=== PATIENT | female | born 1965 | race Caucasian/White ===

== ENCOUNTER → 2016-10-26 | Outpatient (CLI) | payer OTHER | LOC: FIMAGING 10:39 | DX: Z12.31 Encounter for screening mammogram for malignant neoplasm of breast (principal); Z80.3 Family history of malignant neoplasm of breast | CPT/HCPCS: G0202 ==

== ENCOUNTER 2016-12-27 16:01 | Emergency (ER) | payer OTHER ==
[2016-12-27 16:06] VITALS: RESP 16; TEMP 97.9
[2016-12-27] MEDS ORDERED: ONDANSETRON 4 MG/2 ML VIAL IVP ONE (16:50)
[2016-12-27] MEDS ORDERED: fentaNYL 100 MCG/2 ML INJ IVP ONE (16:50)
[2016-12-27] MEDS ORDERED: NS 1,000 ML IV ONE (16:50)
--- NOTE | 2016-12-27 16:54 | EDPHY ---
H & P Time Seen by Provider: 12/27/16 16:23 HPI/ROS: Lower abdominal pain. 51-year-old female by private vehicle with friend. 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 This was down in [place] at [facility]. She has also had a bowel obstruction post surgery which did not require surgical management. She presents complaining of sharp lower abdominal pain which she describes as across her lower abdomen, constant for the last 3 hours. She reports the pain is better now. She has had nausea but no vomiting. Her last bowel movement was yesterday. She describes this is normal. No bloody or melenic stool. She has not had any diarrhea. She denies any urinary complaints. Last meal was this morning. ROS: Constitutional: No fever, no chills. No weakness. Eyes: No discharge. No changes in vision. ENT: No sore throat. No nasal congestion or rhinorrhea. Respiratory: No cough. No shortness of breath. Cardiac: No chest pain, no palpitations. Gastrointestinal: As above, no vomiting, no diarrhea. Genitourinary: No hematuria. No dysuria or increased frequency with urination. Musculoskeletal: No back pain. No neck pain. No myalgias or arthralgias. Skin: No rashes. Neurological: No headache. No focal weakness or altered sensation. Past medical history: As above. Social history: Nonsmoker. No alcohol. Here with a friend. Physical Exam: General Appearance: Alert, no distress. She appears comfortable at this time. This patient is responding to questions appropriately and in full sentences. This patient appears well-hydrated and well-nourished. Eyes: Pupils equal and round no pallor or injection. No lid edema, erythema or injection. Respiratory: There are no retractions, lungs are clear to auscultation with good air movement bilaterally. Cardiovascular: Regular rate and rhythm. No murmur. Gastrointestinal: Abdomen is soft with right lower quadrant tenderness on palpation, no masses, bowel sounds normal. No focal tenderness at McBurney's point. No Sifuentes sign. Neurological: Motor sensory function is grossly intact. Cranial nerves are normal. Gait is normal. Skin: Warm and dry, no rashes. Musculoskeletal: Neck is supple and nontender. Extremities are symmetrical. All joints range without pain or impingement. Psychiatric: No agitation. No depression. Database: EKG: Imaging: CT abdomen and pelvis with IV contrast: No evidence of appendicitis or bowel obstruction. No other significant acute pathology. Constipation noted. Results were discussed with staff radiologist Dr. Jb Caba. Procedures: Emergency department course: IV placed. She was placed on a classroom monitor. She was started on IV normal saline with 1 L to be given over 1 hour. She is declining antiemetics and pain medication at this time. I did discuss CT imaging to evaluate for possible volvulus versus appendicitis. She consents. 6:30 p.m., patient re-evaluated. Resting comfortably at this time. Repeat abdominal exam she is soft, nontender nondistended. Her is in the room with her. I discussed the results of her CT scan as well as blood work and urinalysis with her and her . She feels comfortable going home and I feel she is safe for discharge. Customary return to emergency department precautions reviewed. Follow-up was discussed. All of her questions were answered. She was discharged in good condition. Differential Diagnosis: The differential diagnosis on this patient includes but is not limited to appendicitis, volvulus, bowel obstruction, constipation. This represents a partial list of diagnoses considered. These considerations are based on history , physical exam, past history, reassessment and diagnostic testing. Smoking Status: Never smoked Constitutional: Initial Vital Signs Temperature (C) 36.6 C 12/27/16 16:02 Heart Rate 62 12/27/16 16:02 Respiratory Rate 16 12/27/16 16:02 Blood Pressure 104/69 12/27/16 16:02 O2 Sat (%) 98 12/27/16 16:02 O2 Delivery Mode Room Air Allergies/Adverse Reactions: Penicillins Allergy (Mild, Verified 12/27/16 16:07) Rash Home Medications: Medication Instructions Recorded Levothyroxine [Synthroid 150 mcg 150 mcg PO DAILY@1000 01/05/11 (*)] PARoxetine HCL [Paxil] 5 mg PO DAILY 01/05/11 Medical Decision Making - Diagnostics Imaging Results: Imaging Impressions Abdomen CT 12/27/16 16:50 Impression: 1. Splenectomy and distal pancreatectomy, similar to 2009. 2. Constipation. 3. Intrauterine device. 4. Ricci cava. - Data Points Laboratory Results: Laboratory Results 12/27/16 16:30 12/27/16 16:30 12/27/16 12/27/16 12/27/16 16:55 16:30 16:30 WBC RBC Hgb Hct MCV MCH MCHC RDW Plt Count MPV Neut % (Auto) Lymph % (Auto) Sumner % (Auto) Eos % (Auto) Baso % (Auto) Nucleat RBC Rel Count Absolute Neuts (auto) Absolute Lymphs (auto) Absolute Monos (auto) Absolute Eos (auto) Absolute Basos (auto) Absolute Nucleated RBC Immature Gran % Immature Gran # Sodium 135 mEq/L mEq/L (134-144) Potassium 3.9 mEq/L mEq/L (3.5-5.2) Chloride 103 mEq/L mEq/L (97-110) Carbon Dioxide 22 mEq/l mEq/l (22-31) Anion Gap 10 mEq/L mEq/L (8-16) BUN 16 mg/dL mg/dL (7-23) Creatinine 0.9 mg/dL mg/dL (0.6-1.0) Estimated GFR > 60 Glucose 111 mg/dL H mg/dL (70-100) Calcium 9.6 mg/dL mg/dL (8.5-10.4) Beta HCG, Qual NEGATIVE Urine Color PALE YELLOW Urine Appearance CLEAR Urine pH 6.0 (5.0-7.5) Ur Specific [place] 1.012 (1.002-1.030) Urine Protein NEGATIVE (NEGATIVE) Urine Ketones NEGATIVE (NEGATIVE) Urine Blood NEGATIVE (NEGATIVE) Urine Nitrate NEGATIVE (NEGATIVE) Urine Bilirubin NEGATIVE (NEGATIVE) Urine Urobilinogen NEGATIVE EU EU (0.2-1.0) Ur Leukocyte Esterase NEGATIVE (NEGATIVE) Urine RBC NONE SEEN /hpf /hpf (0-3) Urine WBC 1-3 /hpf /hpf (0-3) Ur Epithelial Cells TRACE /lpf /lpf (NONE-1+) Urine Bacteria TRACE /hpf H /hpf (NONE SEEN) Urine Glucose NEGATIVE (NEGATIVE) 12/27/16 16:30 WBC 9.35 10^3/uL 10^3/uL (3.80-9.50) RBC 4.21 10^6/uL 10^6/uL (4.18-5.33) Hgb 12.3 g/dL L g/dL (12.6-16.3) Hct 37.5 % L % (38.0-47.0) MCV 89.1 fL fL (81.5-99.8) MCH 29.2 pg pg (27.9-34.1) MCHC 32.8 g/dL g/dL (32.4-36.7) RDW 13.9 % % (11.5-15.2) Plt Count 286 10^3/uL 10^3/uL (150-400) MPV 11.1 fL fL (8.7-11.7) Neut % (Auto) 45.7 % % (39.3-74.2) Lymph % (Auto) 44.7 % % (15.0-45.0) Sumner % (Auto) 5.5 % % (4.5-13.0) Eos % (Auto) 1.6 % % (0.6-7.6) Baso % (Auto) 1.4 % % (0.3-1.7) Nucleat RBC Rel Count 0.4 % H % (0.0-0.2) Absolute Neuts (auto) 4.28 10^3/uL 10^3/uL (1.70-6.50) Absolute Lymphs (auto) 4.18 10^3/uL H 10^3/uL (1.00-3.00) Absolute Monos (auto) 0.51 10^3/uL 10^3/uL (0.30-0.80) Absolute Eos (auto) 0.15 10^3/uL 10^3/uL (0.03-0.40) Absolute Basos (auto) 0.13 10^3/uL H 10^3/uL (0.02-0.10) Absolute Nucleated RBC 0.04 10^3/uL H 10^3/uL (0-0.01) Immature Gran % 1.1 % % (0.0-1.1) Immature Gran # 0.10 10^3/uL 10^3/uL (0.00-0.10) Sodium Potassium Chloride Carbon Dioxide Anion Gap BUN Creatinine Estimated GFR Glucose Calcium Beta HCG, Qual Urine Color Urine Appearance Urine pH Ur Specific [place] Urine Protein Urine Ketones Urine Blood Urine Nitrate Urine Bilirubin Urine Urobilinogen Ur Leukocyte Esterase Urine RBC Urine WBC Ur Epithelial Cells Urine Bacteria Urine Glucose Medications Given: Discontinued Medications Sodium Chloride (Ns) 1,000 mls @ 0 mls/hr IV ONCE ONE; Wide Open PRN Reason: Protocol Stop: 06/15/17 16:51 Last Admin: 12/27/16 16:59 Dose: 1,000 mls Departure - Departure Disposition: Home, Routine, Self-Care Clinical Impression: Lower abdominal pain, Constipation Condition: Good Instructions: Abdominal Pain (ED), High Fiber Diet (ED), Constipation (ED) Additional Instructions: Read and follow provided instructions. Follow-up with your primary care physician in 1-2 days for re-evaluation. Return to the emergency department for return of abdominal pain, fever, vomiting , blood in stool or other serious concerns. Referrals: Ann Paniagua MD [Primary Care Provider] - As per Instructions
[2016-12-27 17:02] LABS: % IMMATURE GRANULYOCYTES 1.1 % (0.0-1.1); ABSOLUTE NRBC COUNT 0.04 10^3/uL (0-0.01); ADD DIFF? NO; ADD MORPH? NO; ADD SCAN? NO; ATYPICAL LYMPHOCYTE FLAG 0 (0-99); FRAGMENT RBC FLAG 0 (0-99); HEMATOCRIT 37.5 % (38.0-47.0); HEMOGLOBIN 12.3 g/dL (12.6-16.3); LEFT SHIFT FLG 10 (0-99); LIPEMIA HEMOLYSIS FLAG 80 (0-99); MEAN CELL HEMOGLOBIN 29.2 pg (27.9-34.1); MEAN CELL HEMOGLOBIN CONCENTR. 32.8 g/dL (32.4-36.7); MEAN CELL VOLUME 89.1 fL (81.5-99.8); MEAN PLATELET VOLUME 11.1 fL (8.7-11.7); NRBC-AUTO% 0.4 % (0.0-0.2); PLATELET CLUMPS FLAG 0 (0-99); PLATELET COUNT 286 10^3/uL (150-400); RED BLOOD CELL COUNT 4.21 10^6/uL (4.18-5.33); RED CELL DISTRIBUTION WIDTH 13.9 % (11.5-15.2)
[2016-12-27 17:07] LABS: ANION GAP 10 mEq/L (8-16); CALCIUM 9.6 mg/dL (8.5-10.4); CARBON DIOXIDE 22 mEq/l (22-31); CHLORIDE 103 mEq/L (97-110); CREATININE 0.9 mg/dL (0.6-1.0); GLOMERULAR FILTRATION RATE > 60; GLUCOSE 111 mg/dL (70-100); POTASSIUM 3.9 mEq/L (3.5-5.2); SODIUM 135 mEq/L (134-144)
[2016-12-27] MEDS ORDERED: IOPAMIDOL (ISOVUE-300) 100 ML BTL ONE (17:13)
[2016-12-27 17:38] LABS: COLOR PALE YELLOW; LEUKOCYTE ESTERASE,URINE NEGATIVE (NEGATIVE); NITRITE,URINE NEGATIVE (NEGATIVE)
[2016-12-27 17:48] LABS: BACTERIA TRACE /hpf (NONE SEEN)
[2016-12-27 17:50] LABS: RBC,URINE NONE SEEN /hpf (0-3)
[2016-12-27 18:53] VITALS: BP 123/67; PULSE 67; O2SAT 97
== END 2016-12-27 18:53 | disposition home or self-care (01) ==
DX: K59.00 Constipation, unspecified (principal)
CPT/HCPCS: Q9967

== ENCOUNTER 2018-08-27 21:09 | Emergency (ER) | payer OTHER ==
--- NOTE | 2018-08-27 21:32 | EDPHY ---
H & P Stated Complaint: R THIRD FINGER LAC/FALL Time Seen by Provider: 08/27/18 21:32 HPI/ROS: HPI: This is a 52-year-old female who presents with Chief Complaint: Right middle finger injury Location: Right middle finger Quality: Injury, laceration Duration: Prior to arrival Signs and Symptoms: + bleeding, no radiation, no numbness, no weakness, no tingling, no incontinence, + decreased range of motion, no swelling, + pain, no fever Timing: acute Severity: mild to moderate Context: Patient is right-hand dominant, presents with accidentally slipping while taking the trash out this evening and landing on her right hand. She reports that she cut her right middle finger. She denies any decreased range of motion, paresthesias, weakness. She complains of moderate, constant, nonradiating pain. She also complains of scratch on her right index finger. Denies LOC/head injury/neck pain/dizziness/nausea/vomiting/amnesia. Unsure of tetanus status. Modifying Factors: Direct pressure Comment: ROS: A comprehensive 10 system review of systems is otherwise negative aside from elements mentioned in the history of present illness. MEDICAL/SURGICAL/SOCIAL HISTORY: Medical history: Depression, hypothyroidism, adhesions Surgical history: Splenectomy Social history: , with children. Nonsmoker. CONSTITUTIONAL: Well-developed, well-nourished middle-aged white female, awake and alert, moderate distress HEENT: Atraumatic and normocephalic. NECK: supple, no midline tenderness, flexion 45 degrees, extension 45 degrees, right and left lateral flexion 45 degrees. No meningismus. Cardiovascular: Normal S1/S2, regular rate, regular rhythm, without murmur rub or gallop. PULMONARY/CHEST: Symmetrical and nontender. no crepitus. Clear to auscultation bilaterally. Good air movement. No accessory muscle usage. ABDOMEN: Soft, nondistended, nontender, no ecchymosis. EXTREMITIES: 2/2 pulses, strength 5/5, right index finger shows superficial small area of abrasion over the PIP joint. Right middle finger shows deep 2 Center by 2 cm laceration with tendon exposure; DIP/PIP/MCP flexion/extension intact with good light touch sensation. Left KNEE: Superficial abrasion noted at the superior portion measuring 0.5 in by 0.25 in; no effusion, no medial and lateral joint line tenderness, full extension to 180, flexion to 120. No pain with varus and valgus exam. No pain with anterior drawer or posterior drawer test. Extensor mechanism intact. no deformities, no clubbing, no cyanosis or edema. NEUROLOGICAL: no focal neuro deficits. GCS 15. Light touch sensation intact. SKIN: Warm and dry, no erythema. no rash. Good capillary refill. Source: Patient Exam Limitations: No limitations - Personal History LMP (Females 10-55): 8-14 Days Ago Current Tetanus Diphtheria and Acellular Pertussis (TDAP): Unsure Tetanus Vaccine Date: 2005 - Medical/Surgical History Hx Asthma: No Hx Chronic Respiratory Disease: No Hx Diabetes: No Hx Cardiac Disease: No Hx Renal Disease: No Hx Cirrhosis: No Hx Alcoholism: No Hx HIV/AIDS: No Hx Splenectomy or Spleen Trauma: Yes Other PMH: Splenectomy, HYPOTHYROIDISM. Adhesions - Social History Smoking Status: Never smoked Constitutional: Initial Vital Signs Temperature (C) 36.5 C 08/27/18 21:16 Heart Rate 73 08/27/18 21:16 Respiratory Rate 16 08/27/18 21:16 Blood Pressure 131/68 H 08/27/18 21:16 O2 Sat (%) 95 08/27/18 21:16 O2 Delivery Mode Room Air Allergies/Adverse Reactions: Penicillins Allergy (Mild, Verified 12/27/16 16:07) Rash Home Medications: Medication Instructions Recorded Levothyroxine [Synthroid 150 mcg 150 mcg PO DAILY@1000 01/05/11 (*)] PARoxetine HCL [Paxil] 5 mg PO DAILY 01/05/11 Medical Decision Making - Diagnostics Imaging Results: Imaging Impressions Finger X-Ray 08/27/18 22:39 Impression: Soft tissue injury, with no acute osseous abnormality identified. Procedures: Procedure: Laceration repair. Verbal consent was obtained from the patient. The 1 cm x 1 cm, deep, ED irregular laceration on the right middle finger PIP joint was anesthetized in the usual fashion using a digital block of 6 mL of 1% lidocaine without epinephrine. The wound was irrigated, draped and explored to its base with a gloved finger. There were no deep structures involved. No tendon injury was identified. The wound was repaired with #4, 5-0 Prolene. Good hemostasis was achieved and patient tolerated procedure well. The procedure was performed by myself. Procedure: Splint placement. A right aluminum finger splint was applied. After application of the splint I returned and re-examined the patient. The splint was adequately immobilizing the joint and distal to the splint the patient's circulation and sensation was intact. ED Course/Re-evaluation: Vital signs reviewed and stable upon arrival. Tetanus booster given Digital block provided and laceration repaired Right finger x-ray ordered per patient request PIP joint has full range of motion and does not appear that she has tendon injury. Placed in finger splint with orthopedic hand follow-up Differential Diagnosis: Differential diagnosis includes but is not limited to laceration, tendon rupture , nerve injury, fracture. - Data Points Medications Given: Discontinued Medications Diphtheria/Tetanus/Acell Pertussis (Boostrix) 0.5 ml IM .ONCE ONE Stop: 08/27/18 22:30 Last Admin: 08/27/18 22:33 Dose: 0.5 ml Departure - Departure Disposition: Home, Routine, Self-Care Clinical Impression: Abrasion, left knee, initial encounter Laceration of middle finger of right hand without complication Qualifiers: Encounter type: initial encounter Qualified Code(s): S61.212A - Laceration without foreign body of right middle finger without damage to nail, initial encounter Condition: Good Instructions: Care For Your Stitches (ED), Laceration (ED), Abrasion (ED) Additional Instructions: Keep the dressing/splint dry and in place x 3 days. After 3 days, you may remove the dressing; wash the site daily with mild soap and water; then pat dry. Apply topical antibiotic ointment and clean sterile dressing daily until fully healed. Take Tylenol 650 mg every 4 hours and/or Ibuprofen 600 mg every 8 hours with food as needed for pain. Wound Care Follow-Up: Removal of sutures in [10] days. Suture removal is complimentary in uncomplicated cases. Infection or abnormal findings would require reevaluation by the MD. In that case, you may be billed. Return to the ER immediately if you experience new or worsening pain, discoloration, numbness, tingling, or any other symptoms that concern you. Follow-up with Hand surgery if there are any concerns of decreased range of motion or feeling. Referrals: Ann Paniagua MD [Primary Care Provider] - As per Instructions Matthew Crain MD [Medical Doctor] - As per Instructions
[2018-08-27] MEDS ORDERED: TDAP ADULT 0.5 ML INJ (BOOSTRIX) IM ONE (22:29)
[2018-08-27 23:27] VITALS: BP 113/79
== END 2018-09-07 08:17 | disposition home or self-care (01) ==
PROC: 0HQFXZZ Repair Right Hand Skin, External Approach (ICD-10-PCS; principal; 2018-08-27)
DX: S61.212A Laceration without foreign body of right middle finger without damage to nail, initial encounter (principal); Z23 Encounter for immunization; W01.198A Fall on same level from slipping, tripping and stumbling with subsequent striking against other object, initial encounter; Y92.007 Garden or yard of unspecified non-institutional (private) residence as the place of occurrence of the external cause; Y93.01 Activity, walking, marching and hiking
CPT/HCPCS: L3925